=== PATIENT | male | born 1985 | race Caucasian/White ===

== ENCOUNTER 2018-03-17 17:20 | Emergency (ER) | payer OTHER ==
[2018-03-17] MEDS ORDERED: IBUPROFEN 600 MG TABLET (FP) PO ONE ×2 (18:09→18:12)
--- NOTE | 2018-03-17 18:09 | PDOC ---
Rapid Medical Evaluation Time Seen by Provider: 03/17/18 18:05 Medical Evaluation: 03/17/18 18:05 Pt c/o:sore throat and fever x 2 days Pt on brief exam: no erthyema no exudate, 103 fever Patient ordered for: motrin, flu, strep collected Pt to proceed to the ED Discharge Disposition - Diagnosis Fever - Referrals - Patient Instructions - Post Discharge Activity
[2018-03-17 18:27] VITALS: BP 119/64; PULSE 110; TEMP 103.1; BMI 31.3
--- NOTE | 2018-03-17 19:09 | PDOC ---
History of Present Illness - General Chief Complaint: Sore Throat Stated Complaint: FEVER Time Seen by Provider: 03/17/18 18:05 History Source: Patient Exam Limitations: Clinical Condition - History of Present Illness Initial Comments: 03/17/18 19:13 Patient with no significant past medical history present with complaint of fever , body aches, nasal congestion and malaise since yesterday. Patient denies nausea or vomiting. Denies any other symptoms Timing/Duration: 24 hours Past History - Past Medical History Allergies/Adverse Reactions: Allergies Allergy/AdvReac Type Severity Reaction Status Date / Time No Known Allergies Allergy Verified 03/17/18 18:07 Home Medications: Ambulatory Orders Ipratropium Ronan 2 spray NS BID PRN #1 spray 03/17/18 Methylprednisolone [Medrol Dose Alexandre] 4 mg PO ASDIR #21 tablet 03/17/18 Oseltamivir Phosphate [Tamiflu] 75 mg PO BID 5 Days #10 capsule 03/17/18 COPD: No - Suicide/Smoking/Psychosocial Hx Smoking History: Never smoked Review of Systems - Review of Systems Able to Perform ROS?: Yes Is the patient limited [place] proficient: No Constitutional: Yes: Chills, Fever, Malaise HEENTM: Yes: Symptoms Reported, See HPI, Nose Congestion. No: Eye Pain, Blurred Vision, Tearing, Recent change in vision, Double Vision, Cataracts, Ear Pain, Ocular Prothesis, Ear Discharge, Nose Pain, Tinnitus, Nose Bleeding, Hearing Loss, Throat Pain, Throat Swelling, Mouth Pain, Dental Problems, Difficulty Swallowing, Mouth Swelling, Other Respiratory: No: Symptoms reported, See HPI, Cough, Orthopnea, Shortness of Breath, SOB with Exertion, SOB at Rest, Stridor, Wheezing, Productive cough, Hemoptysis, Other Cardiac (ROS): No: Symptoms Reported, See HPI, Chest Pain, Edema, Irregular Heart Rate, Lightheadedness, Palpitations, Syncope, Chest Tightness, Other ABD/GI: No: Constipated, Diarrhea, Nausea, Vomiting All Other Systems: Reviewed and Negative *Physical Exam - Vital Signs Last Vital Signs Temp Pulse Resp BP Pulse Ox 103.1 F H 110 H 20 119/64 99 03/17/18 18:07 03/17/18 18:07 03/17/18 18:07 03/17/18 18:07 03/17/18 18:07 - Physical Exam Comments: 03/17/18 19:14 GENERAL: Well developed, well nourished. Awake and alert. No acute distress. HEENT: Normocephalic, atraumatic. PERRLA, EOMI. No conjunctival pallor. Sclera are non-icteric. Moist mucous membranes. Oropharynx is clear. NECK: Supple. Full ROM. CARDIOVASCULAR: Regular rate and rhythm. No murmurs, rubs, or gallops. Distal pulses are 2+ and symmetric. PULMONARY: No evidence of respiratory distress. Lungs clear to auscultation bilaterally. No wheezing, rales or rhonchi. ABDOMINAL: Soft. Non-tender. Non-distended. No rebound or guarding. No organomegaly. Normoactive bowel sounds. MUSCULOSKELETAL Normal range of motion at all joints. EXTREMITIES: No cyanosis. No clubbing. No edema. No calf tenderness. SKIN: Warm and dry. Normal capillary refill. No rashes. No jaundice. NEUROLOGICAL: Alert, awake, appropriate. Gait is normal without ataxia. PSYCHIATRIC: Cooperative. Good eye contact. Appropriate mood General Appearance: Yes: Nourished, Appropriately Dressed. No: Apparent Distress Moderate Sedation - Procedure Monitoring Vital Signs: Procedure Monitoring Vital Signs Temperature 103.1 F H 03/17/18 18:07 Pulse Rate 110 H 03/17/18 18:07 Respiratory Rate 20 03/17/18 18:07 Blood Pressure 119/64 03/17/18 18:07 O2 Sat by Pulse Oximetry (%) 99 03/17/18 18:07 ED Treatment Course - Medications Given in the ED: ED Medications Discontinued Medications Generic Name Dose Route Start Last Admin Trade Name Tristanq PRN Reason Stop Dose Admin Ibuprofen 600 mg 03/17/18 18:09 03/17/18 18:20 Motrin - PO 03/17/18 18:10 600 mg ONCE ONE Administration Medical Decision Making - Medical Decision Making 03/17/18 19:15 Patient with no significant past medical history present with complaint of fever , body aches, nasal congestion and malaise since yesterday. Patient denies nausea or vomiting. Exam significant for fever of 10 3F. Lungs clear to auscultation bilateral. No tenderness to abdomen on exam. Rapid strep negative .rapid flu positive for influenza a. Patient is stable for outpatient treatment for influenza with PCP follow-up. Patient advised to alternate between Tylenol Motrin as needed for fever. Motrin given for fever now. 03/17/18 19:26 Temp recheck prior to discharge was 100.1F. Patient stable for discharge *DC/Admit/Observation/Transfer Diagnosis at time of Disposition: Influenza A, URI due to influenza A virus Fever Qualifiers: Fever type: unspecified Qualified Code(s): R50.9 - Fever, unspecified - Discharge Dispostion Disposition: HOME Condition at time of disposition: Stable Decision to Admit order: No - Prescriptions Prescriptions: Ipratropium Ronan 2 spray NS BID PRN #1 spray PRN Reason: nasal congestion Methylprednisolone [Medrol Dose Alexandre] 4 mg PO ASDIR #21 tablet Oseltamivir Phosphate [Tamiflu] 75 mg PO BID 5 Days #10 capsule - Referrals Referrals: Braden Moran [Primary Care Provider] - - Patient Instructions Printed Discharge Instructions: Influenza Additional Instructions: Your rapid strep was negative. Your flu test was positive for influenza a. Take medication as prescribed. Increase fluid intake. Alternate between Tylenol Motrin as needed for fever. - Post Discharge Activity Forms/Work/School Notes: Back to Work
== END 2018-03-17 19:59 | disposition home or self-care (01) ==
LOC: JER 17:20
DX: J09.X2 Influenza due to identified novel influenza A virus with other respiratory manifestations (principal)
CPT/HCPCS: 87070; 87077; 87804; 87880; 99281-25